=== PATIENT | female | born 1950 | race Caucasian/White ===

== ENCOUNTER → 2023-11-27 | Outpatient (CLI) | payer MEDICARE ==
[2023-12-01 09:14] LABS: HPV HIGH RISK BY TMA Not Detected; HPV SOURCE Cervical/Vag
== END ==
LOC: LAB EV 11:37 → LAB SHORT 11:37
PROVIDERS: Obstetrics & Gynecology
DX: N95.0 Postmenopausal bleeding (principal)
CPT/HCPCS: 87624; G0123

== ENCOUNTER → 2024-05-22 | Outpatient (CLI) | payer MEDICARE | LOC: LAB 13:51 → LAB SHORT 13:51 | DX: D23.5 Other benign neoplasm of skin of trunk (principal) | CPT/HCPCS: 88305 ==

== ENCOUNTER 2024-07-25 09:06 | Day surgery (SDC) | payer MEDICARE ==
[2024-07-25] MEDS ORDERED: FILGRASTIM-AYOW 300 MCG/0.5 ML SYRINGE SC SCH (10:10)
[2024-07-25 11:10] VITALS: BP 141/53
[2024-07-25] MEDS ORDERED: ONDA4 PO (11:31)
== END 2024-07-25 11:45 | disposition home or self-care (01) ==
LOC: ATC 09:06
DX: C54.1 Malignant neoplasm of endometrium (principal)
CPT/HCPCS: 96372; Q5125

== ENCOUNTER 2024-07-26 06:19 | Day surgery (SDC) | payer MEDICARE ==
[~2024-07-26 06:19] MED LIST: FILGRASTIM-AYOW 300 MCG/0.5 ML SYRINGE SC SCH; ONDA4 PO
[2024-07-26 13:17] VITALS: BP 147/53
[2024-07-27] MEDS ORDERED: FILGRASTIM SC (11:55)
== END 2024-07-26 13:24 | disposition home or self-care (01) ==
LOC: ATC 06:19
DX: C54.1 Malignant neoplasm of endometrium (principal)
CPT/HCPCS: 96372; Q5125

== ENCOUNTER 2024-07-27 03:16 | Day surgery (SDC) | payer MEDICARE ==
[2024-07-27] MEDS ORDERED: FILGRASTIM SC (11:55)
[2024-07-27 12:00] VITALS: BP 144/54
== END 2024-07-27 12:07 | disposition home or self-care (01) ==
LOC: ATC 03:16
DX: C54.1 Malignant neoplasm of endometrium (principal)
CPT/HCPCS: Q5125

== ENCOUNTER 2024-07-28 02:54 | Day surgery (SDC) | payer MEDICARE ==
[~2024-07-28 02:54] MED LIST changes: +FILGRASTIM SC; -FILGRASTIM-AYOW 300 MCG/0.5 ML SYRINGE SC SCH
[2024-07-28] MEDS ORDERED: FILGRASTIM-AYOW 300 MCG/0.5 ML SYRINGE SC SCH (06:00)
[2024-07-28 11:19] VITALS: BP 161/56
== END 2024-07-28 11:22 | disposition home or self-care (01) ==
LOC: ATC 02:54
DX: C54.1 Malignant neoplasm of endometrium (principal); Z90.710 Acquired absence of both cervix and uterus; Z79.899 Other long term (current) drug therapy
CPT/HCPCS: 96372; Q5125